=== PATIENT | male | born 1980 | race Caucasian/White ===

== ENCOUNTER → 2018-03-20 12:06 | Outpatient (CLI) | payer OTHER, SELFPAY ==
[2017-07-14 08:12] VITALS: BMI 38.6
--- NOTE | 2018-03-20 12:12 | RAD_ITS ---
STUDY: X-RAY - LEFT KNEE REASON FOR EXAM: Male, 37 years old. Medial pain TECHNIQUE: Three view(s) of the knee were obtained. COMPARISON: None. FINDINGS: The distal femur is unremarkable. The proximal tibia is unremarkable. Normal medial femorotibial compartment. Normal lateral femorotibial compartment. Normal patellofemoral articulation. There is no fullness above the patella. The soft tissue structures are unremarkable. RAD/Knee 4 or More Views IMPRESSION: No significant abnormalities are seen radiographically in the left knee. Electronically Signed: Jenn Arias MD at 0:08 EST Tel Direct: [phone], Service support ,
--- OUTSIDE RECORDS SUMMARY | 2018-06-21 17:23 | XMS RPT_ITS ---
:1980 Author Organization [facility] Care Team Providers Name Role Phone Dat Andujar Attending Unavailable Dat Andujar Referring Unavailable Dat Andujar Primary Care Unavailable Soraya Robles Attending Unavailable Dat Andujar Referring Unavailable PROBLEMS PROBLEMS DATE TYPE CONDITION / CODE ATTENDING STATUS SOURCE 03/20/2018 Unknown M25.569 - Pain in Dat Andujar Active Madelin unspecified knee [facility] / M25.569(ICD-10) Hospital Repository PROCEDURES PROCEDURES No Procedure Records FoundRESULTS RESULTS KNEE 4 OR MORE Observed: 03/20/2018 Status: F Source: [place] VIEWS 12:13 PM [facility] H[facility]PITAL REPOSITORY [facility] Imaging Services [address] [place] [address] Knee 4 or More Views MR#: [id number] Acct: [id number] Name: NEIL MYRICK Rep #: [id number] : 1980 M 37 From: Jenn Arias MD PCP: Dat Andujar MD Status: REG CLI Study: Knee 4 or More Views Date of Exam: 03/20/18 Exam# [id number] Ordering Dr: Dat Andujar MD STUDY: X-RAY - LEFT KNEE REASON FOR EXAM: Male, 37 years old. Medial pain TECHNIQUE: Three view(s) of the knee were obtained. COMPARISON: None. FINDINGS: The distal femur is unremarkable. The proximal tibia is unremarkable. Normal medial femorotibial compartment. Normal lateral femorotibial compartment. Normal patellofemoral articulation. There is no fullness above the patella. The soft tissue structures are unremarkable. RAD/Knee 4 or More Views IMPRESSION: No significant abnormalities are seen radiographically in the left knee. Electronically Signed: Jenn Arias MD at 0:08 EST Tel Direct: [phone], Service support , CC: Dat Andujar MD [employer] Saw Operator: Signed URGENT CARE VISIT Observed: 07/14/2017 Status: F Source: [place] REPORT 4:37 PM [facility] RE[facility]IT[facility] [address] [place] [address] [address] [place] [address] OFFICE VISIT Date of Service: 07/14/17 MR#: [id number] Acct: [id number] Name: NEIL MYRICK Rep #: [id number] : 1980 Provider: DIVINE Robles Age/Sex: 36/M Location: [facility] Status: Signed Intake Vital Signs07/14/17 Height 6 ft 1 in Intake Visit Reasons: gout Chief Complaint: right great toe pain x 4 days. Is patient in pain?: Yes (R great toe ) Allergies No Known Allergies Allergy (Unverified 07/14/17 08:13) Medications ibuprofen 200 mg capsule 200 mg PO TID-QID PRN 07/14/17 [History Confirmed 07/14/17] ranitidine 150 mg tablet 150 mg PO QHS 07/14/17 [History Confirmed 07/14/17] PFSH Medical History Asthma (Acute) Knee pain (Acute) Shoulder pain (Acute) Surgical History H/O shoulder surgery (Acute) Social History Smoking Status: Never smoker alcohol intake: never HPI HPI Chief Complaint: right great toe pain x 4 days. Details: NEIL MYRICK, is a 36 M who presents to the office today for right great toe significant pain. (8/10 with movement). No previous history of this for him, but he states his late father (CT age 63) had bad gout his whole life and he suspects this is same. He denies any injury or trauma to the toe. No prolonged walking or climbing. The pain is actually at the joint at the base of the toe. He has h/o HTN controlled with medication and asthma. ROS Const Constitutional: No body ache, headache(s), weakness, night sweats or fatigue Eyes Eyes: No blurry vision or visual disturbances ENT ENT: No headache(s), ear pain or dizziness/vertigo Resp Respiratory: No cough or shortness of breath Cardio Cardiology: No chest pain at rest, chest pain with exertion, shortness of breath, generalized swelling or palpitations Gastro GI: No abdominal pain, nausea/dyspepsia, Black,tarry stools or vomiting Genitourinary Male: No burning urination or urinary frequency Musc Musculoskeletal: Positive for joint pain (see HPI) Skin Skin: No lesions, itching or rash Neuro Neurology: No headache(s), weakness, visual disturbances, confusion or memory loss Psych Psychiatric: No confusion, No memory loss, No anxiety Endo Endocrine: No fatigue or flushing Aller/Imm Allergy/Immunologic: No itchy eyes Mikal/Lymp Hematologic/Lymphatic: No easy bruising Exam Const General: cooperative, no acute distress Nutritional Appearance: obese Orientation: alert, oriented x3 [place] Head: normal to inspection, normocephalic Ears: hearing grossly normal bilaterally Face and sinus: normal facial exam, sinuses nontender Mouth: oral mucosae normal, oropharynx normal, tongue normal Teeth and gingiva: dentition normal, gingiva normal Throat: posterior oropharynx normal Eyes General: appearance normal, both eyes and all related structures Eyelids: eyelids normal Conjunctivae: conjunctivae normal Sclera: sclerae normal Neck Neck: normal visual inspection, supple Neck mass: No Carotids: no bruits Lymphatic: no lymphadenopathy noted Chest Chest palpation AND inspection: normal inspection of the chest Resp Effort AND Inspection: normal respiratory effort, able to speak in complete sentences, symmetric chest movement, no audible wheezes, no cough, not labored, no respiratory distress Auscultation: Bilateral: Clear to Auscultation Cardio Rate: regular rate Rhythm: regular rhythm Heart Sounds: S1 normal, S2 normal Skin General: no rashes or lesions noted Neuro General: alert, oriented x3, moves all extremities Speech: speech normal Gait: antalgic (with right toe pain) Motor: muscle tone normal throughout Sensory Exam: no sensory deficits noted Extrem General: normal exam except as noted (right foot, MTP joint inflamed with mild erthema, swelling,) Other: Increased point tenederness right MTP joint, and increased pain with any movement of the joint. Suspect gout as well. (first occurrence) Psych Appearance: grossly normal, well kempt Mental Status: mental status grossly normal Affect: normal affect Speech and Movement: speech and movement normal Attitude: cooperative Thought Process: normal Thought Content: normal Judgment: judgment good Assessment AND Plan Problems 1. Gout of left foot M10.9 Plan Called prednisone 40 mg /day x 5 days to his pharmacy. Referred tarsha to his PCP for labs, further evaluation and management of his gout. Coding Level of Care Code Off vis,new,level 3 Diagnoses Gout of left foot M10.9 07/14/17 1637 <Electronically signed by Soraya HASKINS> Date Soraya HASKINS Cosigner Signature: Date (if applicable) CC: PROGRESS Observed: 05/23/2017 Status: COMPLETED Source: [place] 9:53 AM [facility] REPOSITORY O ID: [id number] Author: Karen (Ashish) Monique Service: (none) Author Type: Nurse Practitioner Type: Progress Notes Filed: 05/23/2017 10:21 AM Note Text: Subjective HPI Neil Myrick is a 36 year old male who presents with fever, bodyaches, and cough. Symptoms started yesterday. He had chills and hot flashes last night. He took tylenol severe cold medication at home. His daughter was ill with viral URI last week. He did not have a flu shot. He has a history of asthma which rarely bothers him but he could not find his inhaler. Review of Systems Constitutional: Positive for chills, fever and malaise/fatigue. HENT: Positive for congestion. Negative for sore throat. Respiratory: Positive for cough, shortness of breath (last night) and wheezing. Cardiovascular: Negative. Negative for chest pain. Gastrointestinal: Negative. Negative for abdominal pain, diarrhea, nausea and vomiting. Musculoskeletal: Positive for myalgias. Skin: Negative. Negative for rash. Neurological: Positive for headaches. BP 132/92 Pulse 100 Temp 37.8 ?C (100 ?F) Resp 18 Wt 132.5 kg (292 lb) SpO2 94% PAST MEDICAL HISTORY Diagnosis Date - Heartburn - Unspecified asthma(493.90) As a child No past surgical history on file. ALLERGIES Review of patient's allergies indicates no known allergies. MEDICATIONS gabapentin (NEURONTIN) 300 mg capsule Take 300 mg by mouth three times daily. TRAZODONE HCL (TRAZODONE ORAL) Take by mouth. albuterol HFA 90 mcg/actuation inhaler Inhale 2 Puffs as instructed every 6 hours as needed for Wheezing/Shortness of Breath. naproxen 500 mg tablet Take 1 tablet by mouth twice daily as needed (for pain/inflammation). Take with food. ZANTAC 75 75 MG TAB Take one(1) tablet two(2) times daily. No family history on file. Social History Substance Use Topics - Smoking status: Never Smoker - Smokeless tobacco: Never Used - Alcohol use No Objective Physical Exam Constitutional: He is well-developed, well-nourished, and in no distress. HENT: Head: Normocephalic. Right Ear: Tympanic membrane, external ear and ear canal normal. Left Ear: Tympanic membrane, external ear and ear canal normal. Nose: Rhinorrhea present. Mouth/Throat: Uvula is midline, oropharynx is clear and moist and mucous membranes are normal. Mucous membranes are not pale and not dry. No posterior oropharyngeal edema or posterior oropharyngeal erythema. Eyes: Conjunctivae are normal. Right eye exhibits no discharge. Left eye exhibits no discharge. Neck: Neck supple. Cardiovascular: Normal rate, regular rhythm and normal heart sounds. Pulmonary/Chest: Effort normal and breath sounds normal. No respiratory distress. He has no wheezes. He has no rales. Lymphadenopathy: He has no cervical adenopathy. Neurological: He is alert. Skin: Skin is warm and dry. No rash noted. Nursing note and vitals reviewed. ASSESSMENT/PLAN: 1. Flu-like symptoms - ICD9: 780.99, ICD10: R68.89 - ALBUTEROL SULFATE HFA 90 MCG/ACTUATION AEROSOL INHALER - INHALATIONAL SPACING DEVICE - BENZONATATE 100 MG CAPSULE - offered Tamiflu, patient declined. - Follow-up with your PCP in 3-5 days if symptoms have not improved or sooner if symptoms worsen - Discussed red flags and need for immediate medical evaluation if any occur. - Discussed supportive care treatment with fluids, rest and analgesia. - Discussed expected course of illness Karen Amaay CNP ALLERGIES ALLERGIES DATE TYPE / CODE NAME / CODE REACTION SEVERITY SOURCE 07/14/2017 Drug No Known Unknown [facility] Allergy/416 Allergies/T03310 Hospital 685227(SNOM 0388(RXNORM) Repository ED CT) Drug NO KNOWN [facility] Class/52955 ALLERGIES [place] 1003(SNOMED Repository CT) ENCOUNTERS ENCOUNTERS ADMIT/DISCHARGE ACCOUNT ADMITTING ENCOUNTER LOCATION SOURCE NUMBER CLASS 03/20/2018 [id number] Ambulatory [facility] ing:MTRAD Repository 07/14/2017/07/15/19 [id number] Ambulatory [facility]:B [address] Repository 05/23/2017/05/23/19 [id number] Ambulatory [address] Repository PAYERS PAYERS ENCOUNTER GUARANTOR PAYER SUBSCRIBER SOURCE 03/20/2018 NEIL Yates Primary NEIL ATKINSONO846 [facility] Insurance:[facility]: [facility] [id number] [id number] [address]Ijp: [phone]) Number: Repository [phone] ) [id number] Date:[id number], [place] [address]BN: 03/20/2018 Secondary NOT GIVENUNK [place] Insurance:SELF PAY [facility] Number: Effective Repository Date:2018-03-20 07/14/2017 NEIL ATKINSONO846 [facility]ALE [id number] [facility] [address]Eps: [phone] Number: Repository [phone] (HK) [id number] Date: [place], [place] [address]LY: 07/14/2017 Secondary NOT GIVENUNK [place] Insurance:SELF PAY [facility]: Effective Repository Date:2017-07-14
== END ==
PROVIDERS: Family Provider Family Medicine; PCP Family Medicine; Referring Provider Family Medicine; Visit Provider Family Medicine
DX: M25.562 Pain in left knee (principal)
CPT/HCPCS: 73564

== ENCOUNTER → 2020-02-24 | Outpatient (CLI) | payer BC, SELFPAY ==
[2017-07-14 08:12] VITALS: BMI 38.6
== END | disposition home or self-care (01) ==
PROVIDERS: Visit Provider Family Medicine
DX: U07.1 COVID-19 (principal)
CPT/HCPCS: 87635; U0003